=== PATIENT | female | born 1955 | race Caucasian/White ===

== ENCOUNTER 2016-12-03 13:54 | Outpatient (CLI) | payer MEDICAID ==
[2016-12-03 18:18] LABS: BASOPHILS # (AUTO) 0.1 10^3/uL (0.0-0.1); BASOPHILS % (AUTO) 1.4 %; EOSINOPHILS # (AUTO) 0.2 10^3/uL (0.0-0.7); EOSINOPHILS % (AUTO) 2.9 %; HCT - HEMATOCRIT 42.1 % (37.0-47.0); HGB - HEMOGLOBIN 14.4 g/dL (12.0-16.0); LYMPHOCYTES # (AUTO) 2.3 10^3/uL (1.5-3.5); LYMPHOCYTES % (AUTO) 28.1 %; MEAN CORPUSCULAR HEMOGLOBIN 31.4 pg (27.0-31.0); MEAN CORPUSCULAR HGB CONC 34.3 g/dL (32.0-36.0); MEAN CORPUSCULAR VOLUME 91.6 fL (81.0-99.0); MEAN PLATELET VOLUME 8.3 fL (7.9-10.8); MONOCYTES # (AUTO) 0.5 10^3/uL (0.0-1.0); MONOCYTES % (AUTO) 6.6 %; NUCLEATED RED BLOOD CELLS AUTO 0.1 /100WBC; UNCORRECTED WHITE BLOOD COUNT 8.2 x10^3/uL; WHITE BLOOD COUNT 8.2 x10^3/uL (4.8-10.8)
[2016-12-03 18:35] LABS: ALBUMIN/GLOBULIN RATIO 1.3 (1.0-2.2); BILIRUBIN,TOTAL 0.5 mg/dL (0.2-1.0); BUN - BLOOD UREA NITROGEN 15 mg/dL (6-20); CALCIUM 8.8 mg/dL (8.5-10.3); CARBON DIOXIDE - CO2 29 mmol/L (21-32); CHLORIDE 105 mmol/L (101-111); CHOL/HDL RATIO 4.4 (<4.4); CHOLESTEROL 203 mg/dL; CREATININE 0.6 mg/dL (0.4-1.0); GFR - MDRD 102 (>89); GLUCOSE 124 mg/dL (70-100); HDL CHOLESTEROL 46 mg/dL; LDL/HDL RATIO 2.5 (<4.4); POTASSIUM 3.5 mmol/L (3.5-5.0); SODIUM 140 mmol/L (135-145); TOTAL PROTEIN 6.9 g/dL (6.7-8.2); TRIGLYCERIDES 204 mg/dL; VLDL CHOLESTEROL 41 mg/dL
[2016-12-03 19:05] LABS: THYROID STIMULATING HORMONE 0.23 uIU/mL (0.34-5.60)
== END 2016-12-03 13:55 | disposition home or self-care (01) ==
LOC: LAB.F 13:54
PROVIDERS: ATTEND Internal Medicine
DX: E78.00 Pure hypercholesterolemia, unspecified (principal); E03.9 Hypothyroidism, unspecified; R53.83 Other fatigue; M25.50 Pain in unspecified joint; L53.9 Erythematous condition, unspecified
CPT/HCPCS: 36415; 80053; 80061; 83880; 84439; 84443; 85025; 85651; 86038; 86140; 86430

== ENCOUNTER 2016-12-16 14:48 | Outpatient (CLI) | payer MEDICAID ==
[2016-12-16 18:55] LABS: BILIRUBIN,URINE NEGATIVE (NEGATIVE); PH,URINE 5.5 PH (5.0-7.5)
[2016-12-16 19:01] LABS: WBC,URINE 0-3 /HPF (0-5)
[2016-12-16 19:26] LABS: HEMOGLOBIN A1C 0.56 g/dL
== END 2016-12-16 14:49 | disposition home or self-care (01) ==
LOC: LAB.F 14:48
PROVIDERS: ATTEND Internal Medicine
DX: R35.8 Other polyuria (principal)
CPT/HCPCS: 36415; 81001; 83036

== ENCOUNTER 2017-01-20 12:53 | Outpatient (CLI) | payer MEDICAID | END 2017-01-20 12:54 | disposition home or self-care (01) | LOC: LAB.F 12:53 | PROVIDERS: ATTEND Internal Medicine | DX: E03.9 Hypothyroidism, unspecified (principal) | CPT/HCPCS: 36415; 84443 ==

== ENCOUNTER 2017-01-31 13:19 | Outpatient (CLI) | payer MEDICAID ==
--- NOTE | 2017-02-03 16:40 | Mammography Report ---
DIGITAL SCREENING MAMMOGRAM: 01/31/2017 CLINICAL INDICATION: A 61-year-old nulliparous patient with personal history of right breast cancer, status post lumpectomy and radiation therapy, family history of breast cancer, for screening. COMPARISON: 01/2016, 01/2015, 08/2012, 08/2011, 07/2010. TECHNIQUE: Routine CC and MLO projections were obtained of the breasts. FINDINGS: The breasts demonstrate scattered fibroglandular densities bilaterally. Postoperative and posttreatment changes in the right upper outer posterior breast are stable. No suspicious masses, clu stered microcalcifications, or regions of architectural distortion are identified. IMPRESSION: BENIGN FINDINGS. RECOMMENDATION: ROUTINE ANNUAL SCREENING UNLESS OTHERWISE CLINICALLY INDICATED. BIRADS CATEGORY 2-BENIGN FINDINGS. STANDARD QUALIFYING STATEMENTS 1. This examination was reviewed with the aid of Computer-Aided Detection (CAD). 2. A negative or benign imaging report should not delay biopsy if clinically suspicious findings are present. Consider surgical consultation if warranted. More than 5% of cancers are not identified by i maging. 3. Dense breasts may obscure an underlying neoplasm. JOB #: [id number] EXT JOB #:[id number]
== END 2017-01-31 13:20 | disposition home or self-care (01) ==
LOC: DI.S 13:19
PROVIDERS: ATTEND Internal Medicine
DX: Z85.3 Personal history of malignant neoplasm of breast (principal); Z80.3 Family history of malignant neoplasm of breast
CPT/HCPCS: 77067

== ENCOUNTER 2017-06-06 13:27 | Outpatient (CLI) | payer MEDICAID | END 2017-06-06 13:28 | disposition home or self-care (01) | LOC: LAB.F 13:27 | PROVIDERS: ATTEND Physician Assistant Medical | DX: E03.9 Hypothyroidism, unspecified (principal) | CPT/HCPCS: 36415; 84443 ==

== ENCOUNTER 2017-08-01 10:15 | Outpatient (CLI) | payer MEDICAID ==
[2017-08-01 17:49] LABS: BASOPHILS # (AUTO) 0.1 10^3/uL (0.0-0.1); BASOPHILS % (AUTO) 1.9 %; EOSINOPHILS # (AUTO) 0.2 10^3/uL (0.0-0.7); EOSINOPHILS % (AUTO) 3.4 %; HGB - HEMOGLOBIN 13.8 g/dL (12.0-16.0); LYMPHOCYTES # (AUTO) 2.1 10^3/uL (1.5-3.5); LYMPHOCYTES % (AUTO) 35.1 %; MEAN CORPUSCULAR HEMOGLOBIN 30.8 pg (27.0-31.0); MEAN CORPUSCULAR HGB CONC 33.4 g/dL (32.0-36.0); MEAN CORPUSCULAR VOLUME 92.3 fL (81.0-99.0); MEAN PLATELET VOLUME 8.1 fL (7.9-10.8); MONOCYTES # (AUTO) 0.4 10^3/uL (0.0-1.0); MONOCYTES % (AUTO) 6.6 %; NEUTROPHILS # (AUTO) 3.2 10^3/uL (1.5-6.6); PLT - PLATELET COUNT 296 10^3/uL (130-450); RED BLOOD COUNT 4.47 10^6/uL (4.20-5.40)
[2017-08-01 18:27] LABS: CALCIUM 8.7 mg/dL (8.5-10.3); CREATININE 0.6 mg/dL (0.4-1.0)
== END 2017-08-01 10:16 | disposition home or self-care (01) ==
LOC: LAB.F 10:15
PROVIDERS: ATTEND Internal Medicine
DX: G62.9 Polyneuropathy, unspecified (principal)
CPT/HCPCS: 36415; 80048; 82607; 85025

== ENCOUNTER 2017-12-23 13:29 | Outpatient (CLI) | payer MEDICAID ==
--- NOTE | 2017-12-23 16:14 | XRAY Report ---
Reason: KNEE PAIN, LEFT Procedure Date: 12/23/2017 Accession Number: [id number] / [id number] Procedure: XR - Knee 3 View LT CPT Code: FULL RESULT: EXAM: LEFT KNEE RADIOGRAPHY EXAM DATE: 12/23/2017 02:03 PM. CLINICAL HISTORY: Left knee pain. COMPARISON: None. TECHNIQUE: 3 views. FINDINGS: Bones: Normal. No fractures or bone lesions. Joints: Normal. No effusion. No subluxations. Soft Tissues: Normal. No soft tissue swelling. IMPRESSION: No acute fracture or dislocation. RADIA
== END 2017-12-23 13:30 | disposition home or self-care (01) ==
LOC: DI 13:29
PROVIDERS: ATTEND Family Medicine
DX: M25.562 Pain in left knee (principal)

== ENCOUNTER 2018-02-02 13:26 | Outpatient (CLI) | payer MEDICAID ==
--- NOTE | 2018-02-03 08:27 | Mammography Report ---
Reason: SCREEN w VENECIA Procedure Date: 02/02/2018 Accession Number: [id number] / [id number] Procedure: ROSIE - Screening Mammo w/Venecia CPT Code: FULL RESULT: EXAM: Screening Mammo w/Venecia DATE: 02/02/2018 2:15 PM CLINICAL HISTORY: 62 year-old nulliparous female with personal history of right breast cancer status post lumpectomy and radiation. TECHNIQUE: Bilateral CC and MLO views were obtained. COMPARISON: 01/31/2017 01/31/2016 01/05/2015. FINDINGS: The breasts demonstrate scattered fibroglandular densities bilaterally. Posttreatment changes are again seen in the right breast. No suspicious masses, clustered microcalcifications, or regions of architectural distortion are identified. IMPRESSION: Benign findings RECOMMENDATION: Routine annual screening unless otherwise clinically indicated. BIRADS CATEGORY 2: Benign findings STANDARD QUALIFYING STATEMENTS: 1. This examination was not reviewed with the aid of Computer-Aided Detection (CAD). 2. A negative or benign imaging report should not delay biopsy if clinically suspicious findings are present. Consider surgical consultation if warrented. More than 5% of cancers are not identified by imaging. 3. Dense breasts may obscure an underlying neoplasm. 4. This examination was reviewed with the aid of 3D breast imaging (tomosynthesis).
== END 2018-02-02 13:27 | disposition home or self-care (01) ==
LOC: DI 13:26
DX: Z12.31 Encounter for screening mammogram for malignant neoplasm of breast (principal); Z08 Encounter for follow-up examination after completed treatment for malignant neoplasm; Z85.3 Personal history of malignant neoplasm of breast
CPT/HCPCS: 77063; 77067

== ENCOUNTER 2018-02-05 10:02 | Outpatient (CLI) | payer MEDICAID ==
[2018-02-05 18:31] LABS: ALBUMIN 3.8 g/dL (3.2-5.5); ALBUMIN/GLOBULIN RATIO 1.2 (1.0-2.2); ALKALINE PHOSPHATASE 50 IU/L (42-121); ALT ALANINE AMINOTRANSFERASE 16 IU/L (10-60); AST ASPARTATE AMINOTRANSFERASE 17 IU/L (10-42); BILIRUBIN,TOTAL 0.7 mg/dL (0.2-1.0); BUN - BLOOD UREA NITROGEN 15 mg/dL (6-20); CALCIUM 8.8 mg/dL (8.5-10.3); CARBON DIOXIDE - CO2 28 mmol/L (21-32); CHLORIDE 103 mmol/L (101-111); CHOL/HDL RATIO 4.4 (<4.4); CHOLESTEROL 236 mg/dL; CREATININE 0.7 mg/dL (0.4-1.0); GFR - MDRD 85 (>89); GLUCOSE 92 mg/dL (70-100); HDL CHOLESTEROL 54 mg/dL; LDL CHOLESTEROL,CALCULATED 166 mg/dL; LDL/HDL RATIO 3.1 (<4.4); SODIUM 139 mmol/L (135-145); TOTAL PROTEIN 7.1 g/dL (6.7-8.2); VLDL CHOLESTEROL 16 mg/dL
== END 2018-02-05 10:03 | disposition home or self-care (01) ==
LOC: LAB.F 10:02
PROVIDERS: ATTEND Internal Medicine
DX: E78.00 Pure hypercholesterolemia, unspecified (principal); E03.9 Hypothyroidism, unspecified
CPT/HCPCS: 36415; 80053; 80061; 83721; 84443

== ENCOUNTER 2018-06-01 13:45 | Outpatient (CLI) | payer MEDICAID | END 2018-06-01 13:46 | disposition home or self-care (01) | LOC: LAB.F 13:45 | PROVIDERS: ATTEND Internal Medicine | DX: E03.9 Hypothyroidism, unspecified (principal) | CPT/HCPCS: 36415; 84443 ==

== ENCOUNTER 2018-12-21 10:22 | Outpatient (CLI) | payer MEDICAID ==
[2018-12-21 17:14] LABS: HGB - HEMOGLOBIN 14.9 g/dL (12.0-16.0); MEAN CORPUSCULAR HEMOGLOBIN 31.9 pg (27.0-31.0); MEAN CORPUSCULAR HGB CONC 33.4 g/dL (32.0-36.0); MEAN CORPUSCULAR VOLUME 95.5 fL (81.0-99.0); RED BLOOD COUNT 4.67 10^6/uL (4.20-5.40); RED CELL DISTRIBUTION WIDTH 13.2 % (12.0-15.0); WHITE BLOOD COUNT 5.8 x10^3/uL (4.8-10.8)
[2018-12-21 18:04] LABS: ALBUMIN 3.7 g/dL (3.2-5.5); ALKALINE PHOSPHATASE 45 IU/L (42-121); ALT ALANINE AMINOTRANSFERASE 22 IU/L (10-60); AST ASPARTATE AMINOTRANSFERASE 19 IU/L (10-42); BILIRUBIN,TOTAL 0.6 mg/dL (0.2-1.0); BUN - BLOOD UREA NITROGEN 16 mg/dL (6-20); CARBON DIOXIDE - CO2 28 mmol/L (21-32); CHLORIDE 104 mmol/L (101-111); CHOL/HDL RATIO 4.8 (<4.4); CHOLESTEROL 249 mg/dL; CREATININE 0.7 mg/dL (0.4-1.0); GFR - MDRD 85 (>89); GLUCOSE 85 mg/dL (70-100); HDL CHOLESTEROL 52 mg/dL; LDL CHOLESTEROL,CALCULATED 177 mg/dL; LDL/HDL RATIO 3.4 (<4.4); SODIUM 140 mmol/L (135-145); TOTAL PROTEIN 7.3 g/dL (6.7-8.2); VLDL CHOLESTEROL 20 mg/dL
[2018-12-21 19:26] LABS: FREE T4 (FREE THYROXINE) 1.14 ng/dL (0.58-1.64)
== END 2018-12-21 10:23 | disposition home or self-care (01) ==
LOC: LAB.S 10:22
PROVIDERS: ATTEND Internal Medicine
DX: Z00.00 Encounter for general adult medical examination without abnormal findings (principal); E78.00 Pure hypercholesterolemia, unspecified; G62.9 Polyneuropathy, unspecified; E03.9 Hypothyroidism, unspecified
CPT/HCPCS: 36415; 80053; 80061; 82607; 83721; 84439; 84443; 85027

== ENCOUNTER 2019-01-01 13:15 | Outpatient (CLI) | payer MEDICAID ==
[2019-01-01 18:01] LABS: BILIRUBIN,URINE NEGATIVE (NEGATIVE); GLUCOSE, URINE (UA) NEGATIVE (NEGATIVE); KETONES,URINE (UA) NEGATIVE (NEGATIVE); LEUKOCYTE ESTERASE, URINE NEGATIVE (NEGATIVE); NITRITE,URINE NEGATIVE (NEGATIVE); OCCULT BLOOD,URINE NEGATIVE (NEGATIVE); PH,URINE 6.5 PH (5.0-7.5); PROTEIN,URINE NEGATIVE (NEGATIVE); UROBILINOGEN,URINE 0.2 (NORMAL) E.U./dL (NORMAL)
[2019-01-01 18:08] LABS: CLARITY,URINE CLEAR (CLEAR)
== END 2019-01-01 23:59 | disposition home or self-care (01) ==
LOC: LAB.R 13:15
PROVIDERS: ATTEND Internal Medicine
DX: R39.15 Urgency of urination (principal)
CPT/HCPCS: 81001; 81003; 87086

== ENCOUNTER 2019-02-09 14:24 | Outpatient (CLI) | payer MEDICAID ==
--- NOTE | 2019-02-10 09:30 | Mammography Report ---
Reason: SELF REFERRING MAMMO Procedure Date: 02/09/2019 Accession Number: [id number] / [id number] Procedure: MGS - Screening Mammo Dig Bilat CPT Code: Final Report FULL RESULT: EXAM: Screening Mammo Dig Bilat DATE: 02/09/2019 3:12 PM CLINICAL HISTORY: Screening encounter. History of nulliparity and personal history of breast cancer status post right breast lump ectomy in 1994. Family history of breast cancer in the mother at the age of 72. TECHNIQUE: (B) - Bilateral CC and MLO views were obtained. COMPARISON: 02/02/2018 through 2010. PARENCHYMAL PATTERN: (A) - The breast(s) demonstrate(s) scattered fibroglandular densities. FINDINGS: Posttreatment changes in the right breast are stable, typically benign. There are no suspicious masses, calcifications, or areas of distortion. IMPRESSION: Benign findings. BI-RADS category 2. RECOMMENDATION: (ANNUAL) - Recommend routine annual screening mammography. BI-RADS CATEGORY: (2) - Benign Findings. STANDARD QUALIFYING STATEMENTS: 1. This examination was reviewed with the aid of Computer-Aided Detection (CAD). 2. A negative or benign imaging report should not preclude biopsy if clinically suspicious findings are present. 3. Dense breasts may obscure an underlying neoplasm. 4. This examination was reviewed without the aid of 3D breast imaging (tomosynthesis).
== END 2019-02-09 14:25 | disposition home or self-care (01) ==
LOC: DI.S 14:24
DX: Z12.31 Encounter for screening mammogram for malignant neoplasm of breast (principal); Z80.3 Family history of malignant neoplasm of breast; Z08 Encounter for follow-up examination after completed treatment for malignant neoplasm; Z85.3 Personal history of malignant neoplasm of breast
CPT/HCPCS: 77067

== ENCOUNTER 2019-02-22 12:43 | Outpatient (CLI) | payer MEDICAID ==
--- NOTE | 2019-02-22 13:59 | CT Report ---
Reason: NICOTINE DEPENDENCE Procedure Date: 02/22/2019 Accession Number: [id number] / [id number] Procedure: CT - Low Dose Lung Cancer Screen CPT Code: Final Report FULL RESULT: EXAM CT LUNG SCREEN EXAM DATE: 02/22/2019 01:09 PM. HISTORY: 63-year-old patient with [id number] smoking history. Currently smoking: Yes. COMPARISON: None. TECHNIQUE: CT examination of the entire thorax without contrast was performed using low-dose technique. Thin section coronal, axial, sagittal and MIP axial images were obtained. In accordance with CT protocol optimization, one or more of the following dose reduction techniques were utilized for this exam: automated exposure control, adjustment of mA and/or KV based on patient size, or use of iterative reconstructive technique. FINDINGS: Nodules: Right upper lobe: None. Right middle lobe: None. Right lower lobe: None. Left upper lobe: 2 mm nodule image 28 series 4. Left lower lobe: None. Emphysema: None. Pleura: Apical pleural thickening/scarring is seen at the right lung apex greater than left lung apex. Aorta: Mildly calcified. Mediastinum: Unremarkable. Coronary calcifications: Minimal. Other pulmonary findings: None. Other extrapulmonary findings: Cholelithiasis. Calcifications in the right breast and right axillary region, likely prior breast surgery. IMPRESSION: Lung-RADS ASSESSMENT CATEGORY: 2. - benign appearance or behavior. Probability of malignancy: Less than 1%. RECOMMENDATION: Continue annual lung screening CT. RADIA
== END 2019-02-22 12:44 | disposition home or self-care (01) ==
LOC: DI 12:43
PROVIDERS: ATTEND Registered Nurse
DX: Z12.2 Encounter for screening for malignant neoplasm of respiratory organs (principal); F17.210 Nicotine dependence, cigarettes, uncomplicated

== ENCOUNTER 2019-03-11 14:32 | Outpatient (CLI) | payer MEDICAID ==
[2019-03-11 19:45] LABS: FREE T4 (FREE THYROXINE) 1.22 ng/dL (0.58-1.64)
== END 2019-03-11 14:33 | disposition home or self-care (01) ==
LOC: LAB.S 14:32
PROVIDERS: ATTEND Registered Nurse
DX: R94.6 Abnormal results of thyroid function studies (principal)
CPT/HCPCS: 36415; 84439; 84443

== ENCOUNTER 2019-09-07 13:16 | Outpatient (CLI) | payer MEDICAID ==
[~2019-09-07 13:16] MED LIST: ALBUTEROL 1 PUFF INH STA
== END 2019-09-07 13:17 | disposition home or self-care (01) ==
LOC: RT 13:16
PROVIDERS: ATTEND Registered Nurse
DX: J44.9 Chronic obstructive pulmonary disease, unspecified (principal); F17.200 Nicotine dependence, unspecified, uncomplicated
CPT/HCPCS: 94060; 94729

== ENCOUNTER 2019-10-28 19:47 | Outpatient (CLI) | payer MEDICAID | END 2019-10-28 19:48 | disposition home or self-care (01) | LOC: COV 19:47 | PROVIDERS: ATTEND Family Medicine | DX: R05 Cough (principal); R06.02 Shortness of breath; R53.83 Other fatigue; J02.9 Acute pharyngitis, unspecified; R09.81 Nasal congestion; Z20.828 Contact with and (suspected) exposure to other viral communicable diseases ==

== ENCOUNTER 2020-01-26 07:28 | Outpatient (CLI) | payer MEDICAID ==
[2020-01-26 15:51] LABS: BASOPHILS # (AUTO) 0.1 10^3/uL (0.0-0.1); BASOPHILS % (AUTO) 1.4 %; EOSINOPHILS # (AUTO) 0.3 10^3/uL (0.0-0.7); EOSINOPHILS % (AUTO) 4.5 %; HGB - HEMOGLOBIN 14.3 g/dL (12.0-16.0); LYMPHOCYTES # (AUTO) 2.3 10^3/uL (1.5-3.5); LYMPHOCYTES % (AUTO) 36.2 %; MEAN CORPUSCULAR HEMOGLOBIN 31.2 pg (27.0-31.0); MEAN CORPUSCULAR HGB CONC 33.3 g/dL (32.0-36.0); MEAN CORPUSCULAR VOLUME 93.7 fL (81.0-99.0); MONOCYTES # (AUTO) 0.5 10^3/uL (0.0-1.0); MONOCYTES % (AUTO) 7.9 %; NEUTROPHILS # (AUTO) 3.1 10^3/uL (1.5-6.6); NEUTROPHILS % (AUTO) 49.7 %; PLT - PLATELET COUNT 284 10^3/uL (130-450); RED BLOOD COUNT 4.58 10^6/uL (4.20-5.40); RED CELL DISTRIBUTION WIDTH 12.9 % (12.0-15.0); WHITE BLOOD COUNT 6.2 x10^3/uL (4.8-10.8)
[2020-01-26 16:02] LABS: ALBUMIN 3.5 g/dL (3.2-5.5); ALBUMIN/GLOBULIN RATIO 1.1 (1.0-2.2); ALKALINE PHOSPHATASE 47 IU/L (42-121); ALT ALANINE AMINOTRANSFERASE 17 IU/L (10-60); AST ASPARTATE AMINOTRANSFERASE 16 IU/L (10-42); BILIRUBIN,TOTAL 0.5 mg/dL (0.2-1.0); BUN - BLOOD UREA NITROGEN 17 mg/dL (6-20); CALCIUM 8.7 mg/dL (8.5-10.3); CARBON DIOXIDE - CO2 27 mmol/L (21-32); CHLORIDE 106 mmol/L (101-111); CHOL/HDL RATIO 4.1 (<4.4); CHOLESTEROL 205 mg/dL; CREATININE 0.7 mg/dL (0.4-1.0); GLUCOSE 90 mg/dL (70-100); HDL CHOLESTEROL 50 mg/dL; LDL CHOLESTEROL,CALCULATED 136 mg/dL; LDL/HDL RATIO 2.7 (<4.4); SODIUM 139 mmol/L (135-145); TOTAL PROTEIN 6.6 g/dL (6.7-8.2); VLDL CHOLESTEROL 19 mg/dL
== END 2020-01-26 07:29 | disposition home or self-care (01) ==
LOC: LAB.S 07:28
PROVIDERS: ATTEND Registered Nurse
DX: J44.9 Chronic obstructive pulmonary disease, unspecified (principal); E78.00 Pure hypercholesterolemia, unspecified; F17.200 Nicotine dependence, unspecified, uncomplicated; R79.89 Other specified abnormal findings of blood chemistry
CPT/HCPCS: 36415; 80053; 80061; 83721; 84443; 85025

== ENCOUNTER 2020-07-04 13:30 | Outpatient (CLI) | payer MEDICAID, OTHER ==
--- NOTE | 2020-07-04 16:35 | XRAY Report ---
PROCEDURE: Chest 2 View X-Ray INDICATIONS: COUGH TECHNIQUE: 2 view(s) of the chest. COMPARISON: Chest CT dated 02/22/2019 FINDINGS: Surgical changes and devices: None. Lungs and pleura: No pleural effusions or pneumothorax. Lungs are clear. Mediastinum: Mediastinal contours are normal. Heart size is normal. Bones and chest wall: No suspicious bony abnormalities. Calcifications within the right anterior ch est wall are present, as before. Soft tissues appear unremarkable. IMPRESSION: No acute process. Reviewed by: Mike Hameed MD on 07/04/2020 4:34 PM PDT Approved by: Mike Hameed MD on 07/04/2020 4:34 PM PDT Station ID: [id number]
== END 2020-07-04 23:59 | disposition home or self-care (01) ==
LOC: DI.S 13:30
PROVIDERS: ATTEND Physician Assistant Medical
DX: R05 Cough (principal); R06.02 Shortness of breath; Z20.822 Contact with and (suspected) exposure to COVID-19
CPT/HCPCS: 87275; 87276

== ENCOUNTER 2020-07-14 13:08 | Outpatient (CLI) | payer OTHER ==
--- NOTE | 2020-07-14 13:29 | XRAY Report ---
PROCEDURE: Chest 2 View X-Ray INDICATIONS: DYSPNEA TECHNIQUE: 2 view(s) of the chest. COMPARISON: None. FINDINGS: Surgical changes and devices: Surgical clips are seen in right axilla. Lungs and pleura: No pleural effusions or pneumothorax. Lungs are clear. Mediastinum: Mediastinal contours are normal. Heart size is normal. Bones and chest wall: No suspicious bony abnormalities. Soft tissues appear unremarkable. IMPRESSION: No acute cardiopulmonary pathology. Reviewed by: Rickie Bullock MD on 07/14/2020 1:28 PM PDT Approved by: Rickie Bullock MD on 07/14/2020 1:28 PM PDT Station ID: [id number]
== END 2020-07-14 13:09 | disposition home or self-care (01) ==
LOC: DI.S 13:08
PROVIDERS: ATTEND Physician Assistant Medical
DX: R06.00 Dyspnea, unspecified (principal)

== ENCOUNTER 2020-08-22 08:00 | Outpatient (CLI) | payer MEDICARE ==
[2020-08-22 15:43] LABS: THYROID STIMULATING HORMONE 6.03 uIU/mL (0.34-5.60)
[2020-08-22 16:25] LABS: FREE T4 (FREE THYROXINE) 1.36 ng/dL (0.58-1.64)
== END 2020-08-22 23:59 | disposition home or self-care (01) ==
LOC: LAB.S 08:00
PROVIDERS: ATTEND Physician Assistant Medical
DX: E03.9 Hypothyroidism, unspecified (principal)
CPT/HCPCS: 36415; 84439; 84443

== ENCOUNTER 2020-08-25 18:34 | Emergency (ER) | payer OTHER, MEDICARE, BC ==
[2020-08-25] MEDS ORDERED: ALBUTEROL 1 PUFF INH STA (19:37)
--- NOTE | 2020-08-25 20:05 | XRAY Report ---
PROCEDURE: Chest 2 View X-Ray INDICATIONS: shortness of breath TECHNIQUE: 2 view(s) of the chest. COMPARISON: 07/14/2020. FINDINGS: Surgical changes and devices: Right lumpectomy/axillary clips. Lungs and pleura: No pleural effusions or pneumothorax. Lungs are clear. Mediastinum: Mediastinal contours are normal. Heart size is normal. Bones and chest wall: No suspicious bony abnormalities. Soft tissues appear unremarkable. IMPRESSION: No evidence acute pulmonary process. Reviewed by: Allen Mejia MD on 08/25/2020 8:03 PM PDT Approved by: Allen Mejia MD on 08/25/2020 8:03 PM PDT Station ID: [id number]
[2020-08-25] MEDS ORDERED: ALBUTEROL NEB 2.5 MG/3 ML INH STA (20:11)
[2020-08-25] MEDS ORDERED: IPRATROPIUM/ALBUTEROL 3 ML NEB INH STA (20:11)
[2020-08-25] MEDS ORDERED: CETIRIZINE 10 MG TABLET PO STA (20:28)
[2020-08-25] MEDS ORDERED: predniSONE 20 MG TABLET PO STA (20:28)
--- NOTE | 2020-08-25 20:42 | ED Physician Documentation ---
PD HPI DYSPNEA - Stated complaint Stated Complaint: SOA - Chief complaint Chief Complaint: Resp - History obtained from History obtained from: Patient - History of Present Illness Pain level max: 0 Pain level now: 0 Associated symptoms: No: Fever - Additional information Additional information: Patient is a 65-year-old female who was diagnosed with COPD several months ago. She has a Combivent Respimat inhaler as well as an albuterol inhaler. She has been on steroids multiple times in the past 3 months. She states that she feels better on the prednisone, but then when she stops it she has a hard time breathing again. She is using the Combivent as needed. Also using the albuterol as needed without a spacer. No fevers. No chills. Dry chronic cough. She states that she has quit smoking. No chest pain.She states she feels like her chest is tight and has increased wheezing. Worse with walking, b ron with rest. Review of Systems Constitutional: denies: Fever Nose: reports: Congestion. 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 HEENT: None Derm: None - Past Surgical History Past Surgical History: Yes Ortho: Other /ELECTRONICS DESIGN ENGINEER: Hysterectomy, Mastectomy - Present Medications Home Medications: Ambulatory Orders Medication Instructions Recorded Confirmed Budesonide/Formoterol Fumarate 2 puffs IH BID #1 08/25/20 [Symbicort 80-4.5 Mcg Inhaler] Cetirizine [ZyrTEC] 10 mg PO DAILY #30 tablet 08/25/20 Doxycycline Hyclate 100 mg PO BID 08/25/20 08/25/20 Levothyroxine [Synthroid] 100 mcg PO DAILY 08/25/20 08/25/20 predniSONE [Deltasone] 10 mg PO [id number] #42 tab 08/25/20 - Allergies Allergies/Adverse Reactions: Allergies Allergy/AdvReac Type Severity Reaction Status Date / Time No Known Drug Allergies Allergy Verified 08/25/20 18:55 - Social History Does the pt smoke?: No Smoking Status: Former smoker Does the pt drink ETOH?: Yes Does the pt have substance abuse?: No - Immunizations Immunizations are current?: Yes PD ED PE NORMAL - Vitals Vital signs reviewed: Yes - General General: Alert and oriented X 3, No acute distress - HEENT HEENT: Moist mucous membranes - Neck Neck: Supple, no meningeal sign - Cardiac Cardiac: RRR, Strong equal pulses - Respiratory Respiratory: No respiratory distress, Other (Diffuse wheezing bilaterally) - Abdomen Abdomen: Soft, Non tender, Non distended - Derm Derm: Warm and dry - Extremities Extremities: No edema, No calf tenderness / cord - Neuro Neuro: Alert and oriented X 3 - Psych Psych: Normal mood, Normal affect Results - Vitals Vitals: Vital Signs - 24 hr 08/25/20 08/25/20 08/25/20 18:49 19:07 20:00 Temperature 36.2 C L 37.4 C Heart Rate 108 H 105 H 107 H Respiratory 20 20 22 Rate Blood Pressure 136/70 H 135/73 H O2 Saturation 92 94 08/25/20 08/25/20 08/25/20 20:30 21:00 21:07 Temperature 37.4 C Heart Rate 107 H 110 H 96 Respiratory 24 21 Rate Blood Pressure 148/79 H O2 Saturation 100 Oxygen O2 Source Room air - Rads (name of study) cxr Radiology: Prelim report reviewed, EMP read contemporaneously, See rad report (No evidence acute pulmonary process. ) PD MEDICAL DECISION MAKING - ED course Complexity details: reviewed results, re-evaluated patient, considered differential, d/w patient, d/w family ED course: 65-year-old female with a COPD flare. We will place on steroids for home. Given albuterol, DuoNeb treatments here. Also given prednisone and Zyrtec here. We will start her on Zyrtec for home as well as there are significant allergens in the air currently. We will also place her on a Symbicort inhaler for home for better long-term symptom control. She sees her doctor on Friday. She has not yet seen a gravel weigher and I think she would benefit from seeing 1. Informed to use her Combivent Respimat 4 times per day. Use the albuterol for breakthrough. Patient counseled regarding signs and symptoms for which I believe and urgent re-evaluation would be necessary. Patient with good understanding of and agreement to plan and is comfortable going home at this time This document was made in part using voice recognition software. While efforts are made to proofread this document, sound alike and grammatical errors may occur. Departure - Departure Disposition: Home, Self Care Clinical Impression: Moderate COPD (chronic obstructive pulmonary disease) Condition: Good Instructions: ED COPD Flare Follow-Up: Machelle Zarco ARNP [Primary Care Provider] - Within 1 week Prescriptions: predniSONE [Deltasone] 10 mg PO [id number] #42 tab Budesonide/Formoterol Fumarate [Symbicort 80-4.5 Mcg Inhaler] 2 puffs IH BID #1 Cetirizine [ZyrTEC] 10 mg PO DAILY #30 tablet Comments: Please ensure you are using the Combivent every 6 hours at home. We are going to add Symbicort twice a day. We are going to place you on a steroid taper over the next 10 days. We will also place you on an allergy medication. You can use the albuterol with a spacer for any breakthrough difficulty breathing. Follow-up with your doctor on Friday as scheduled. Return if you worsen. Discharge Date/Time: 08/25/20 21:19
[2020-08-25 21:06] VITALS: BP 148/79
== END 2020-08-25 21:19 | disposition home or self-care (01) ==
LOC: ED 18:34
DX: J44.1 Chronic obstructive pulmonary disease with (acute) exacerbation (principal); Z87.891 Personal history of nicotine dependence
CPT/HCPCS: 71046; 94640; 94664; 99283; 99284; A9270; J7512

== ENCOUNTER 2020-09-12 13:20 | Outpatient (CLI) | payer MEDICARE, BC | END 2020-09-12 13:21 | disposition home or self-care (01) | LOC: RT 13:20 | PROVIDERS: ATTEND Registered Nurse | DX: Z53.9 Procedure and treatment not carried out, unspecified reason (principal) ==

== ENCOUNTER 2020-10-10 13:17 | Outpatient (CLI) | payer MEDICARE, BC ==
[2020-10-10] MEDS ORDERED: ALBUTEROL 1 PUFF INH STA (17:23)
== END 2020-10-10 13:18 | disposition home or self-care (01) ==
LOC: RT 13:17
PROVIDERS: ATTEND Registered Nurse
DX: J44.1 Chronic obstructive pulmonary disease with (acute) exacerbation (principal); R05 Cough; R06.02 Shortness of breath
CPT/HCPCS: 93005; 94060; 94664

== ENCOUNTER 2020-11-03 08:00 | Outpatient (CLI) | payer MEDICARE, BC ==
--- NOTE | 2020-11-03 17:14 | XRAY Report ---
PROCEDURE: Shoulder 3 View RT INDICATIONS: RIGHT SHOULDER PAIN AFTER FALL TECHNIQUE: 2 views of the shoulder were acquired. COMPARISON: None. FINDINGS: Bones: There is a comminuted fracture of the proximal humeral head and neck with impaction and anteri or displacement of the humeral shaft fragment. The humeral head remains aligned with the glenoid. No suspicious bony lesions. Visualized ribs appear intact. Soft tissues: No suspicious soft tissue calcifications. Surgical clips are seen in the right chest. IMPRESSION: Comminuted, mildly displaced and impacted fracture of the proximal humeral head and neck . Reviewed by: Sonido Cuadra MD on 11/03/2020 5:13 PM PDT Approved by: Sonido Cuadra MD on 11/03/2020 5:13 PM PDT Station ID: [id number]
== END 2020-11-03 23:59 | disposition home or self-care (01) ==
LOC: DI.S 08:00
PROVIDERS: ATTEND Physician Assistant Medical
DX: S42.291A Other displaced fracture of upper end of right humerus, initial encounter for closed fracture (principal)

== ENCOUNTER 2020-11-03 17:48 | Emergency (ER) | payer MEDICARE, BC ==
[2020-11-03] MEDS ORDERED: HYDROcod/ACETAM 5/325 MG TABLET PO STA (19:45)
[2020-11-03] MEDS ORDERED: KETOROLAC 15 MG/ML VIAL IM STA (20:36)
[2020-11-03] MEDS ORDERED: HYDROmorphone 1 MG/ML CARPUJECT IM STA (20:36)
[2020-11-03] MEDS ORDERED: oxyCODONE/ACET 5/325 Prepack 4 PO STA (20:39)
--- NOTE | 2020-11-03 20:39 | ED Physician Documentation ---
PD HPI UPPER EXT INJURY - Stated complaint Stated Complaint: RT SHOULDER PX/FELL DOWN DITCH - Chief complaint Chief Complaint: Trauma Ext - History obtained from History obtained from: Patient - Additonal information Additional information: 65-year-old woman is up-to-date on tetanus had a fall down a slope today injuring mostly her right shoulder. She has severe pain in the right shoulder. Some scrapes but otherwise no other severe injuries. She was seen in clinic and had an x-ray done and referred here for further evaluation and treatment. 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 HEENT: None Derm: None - Past Surgical History Past Surgical History: Yes Ortho: Other /MANAGER RAIL: Hysterectomy, Mastectomy - Present Medications Home Medications: Ambulatory Orders Medication Instructions Recorded Confirmed Cetirizine [ZyrTEC] 10 mg PO DAILY #30 tablet 08/25/20 11/03/20 Levothyroxine [Synthroid] 100 mcg PO DAILY 08/25/20 11/03/20 Albuterol 1 inh INH PRN PRN 11/03/20 11/03/20 Fluticasone/Vilanterol [Breo 1 inh INH DAILY 11/03/20 11/03/20 Ellipta 200-25 Mcg INH] Oxycodone HCl/Acetaminophen 1 - 2 each PO Q6H PRN #30 tablet 11/03/20 [Percocet 5-325 mg Tablet] - Allergies Allergies/Adverse Reactions: Allergies Allergy/AdvReac Type Severity Reaction Status Date / Time No Known Drug Allergies Allergy Verified 11/03/20 18:21 - Social History Does the pt smoke?: No Smoking Status: Former smoker Does the pt drink ETOH?: Yes Does the pt have substance abuse?: No - Immunizations Immunizations are current?: Yes PD ED PE NORMAL - Vitals Vital signs reviewed: Yes - General General: Alert and oriented X 3, No acute distress - HEENT HEENT: PERRL, EOMI - Neck Neck: Supple, no meningeal sign, No bony TTP - Extremities Extremities: Other (Quite tender to the upper humerus and cannot range it at all. The remainder of her extremities are nontender. She does have a little scrape on the right hand and the lateral right knee which are nontender with full range of motion.) - Neuro Neuro: Alert and oriented X 3, Normal speech Results - Vitals Vitals: Vital Signs - 24 hr 11/03/20 11/03/20 18:15 20:22 Temperature 36.9 C Heart Rate 109 H 96 Respiratory 18 18 Rate Blood Pressure 131/67 H 148/72 H O2 Saturation 99 99 Oxygen O2 Source Room air PD MEDICAL DECISION MAKING - ED course ED course: X-ray of the right shoulder from earlier in the day was reviewed. She has a comminuted fracture of the right humerus, mildly displaced and impacted fracture of the humeral head and neck. She is placed in a sling and discussed the conservative nature of these fractures. Pain management was given as well. At her request I also spoke with her sister about the case. Departure - Departure Disposition: Home, Self Care Clinical Impression: Humeral fracture Qualifiers: Encounter type: initial encounter Humerus Location: surgical neck Fracture type: closed Fracture alignment: displaced Condition: Good Record reviewed to determine appropriate education?: Yes Instructions: ED Fx Shoulder Follow-Up: Josh Jane MD [Provider Admit Priv/Credential] - Prescriptions: Oxycodone HCl/Acetaminophen [Percocet 5-325 mg Tablet] 1 - 2 each PO Q6H PRN #30 tablet PRN Reason: pain Comments: Keep the sling on for the most part, but you can remove it briefly for changing and showering that sort of thing. Return for new or worsening symptoms. You do need to follow-up with the orthopedist to make sure you are healing well, but as discussed humeral fractures require only rarely any specific treatment other than time and pain medication and may be some physical therapy. The orthopedic surgeons number is on this form, call Friday for an appointment. I am prescribing a short course of narcotic pain medication for you. These are potentially dangerous and addictive medications that should be used carefully. These medications may constipate you. Take an fhqy-thu-bxenycf stool softener (docusate) twice daily with plenty of water while taking these medications. If you go 24 hours without a bowel movement, take [id number]-sbr-[id number] miralax, per package instructions. Do not drink or drive while taking these medications. If you received narcotic or sedating medications while in the emergency department, do not drive for 24 hours. Store this medication in a safe, secure place and out of reach of children. It is a violation of federal law to give or sell this medication to another person or to use in a manner other than prescribed. The ED will not refill narcotic prescriptions, including prescriptions lost or stolen. To dispose of unwanted medications: 1. [facility] at [address] in [place] has a medication drop box. They accept prescription medications (in pill form) Friday through Friday 9:00 a.m. to 5:00 p.m. 2. The [facility] [employer] [facility] accepts prescription medications (in pill form only) for disposal year round. Call for more information. 3. Contact the [facility] for the next [facility] sponsored prescription drug collection event. , [phone], or [phone]; Note that many narcotic pain relievers also contain Tylenol/acetaminophen. Please ensure that your total dose of acetaminophen from all sources does not exceed 3 g (3000 mg) per day.
[2020-11-03 21:11] VITALS: BP 134/81
== END 2020-11-03 21:12 | disposition home or self-care (01) ==
LOC: ED 17:48
DX: S42.211A Unspecified displaced fracture of surgical neck of right humerus, initial encounter for closed fracture (principal); S60.511A Abrasion of right hand, initial encounter; S80.211A Abrasion, right knee, initial encounter; W17.81XA Fall down embankment (hill), initial encounter; Y92.89 Other specified places as the place of occurrence of the external cause; Z87.891 Personal history of nicotine dependence; S42.291A Other displaced fracture of upper end of right humerus, initial encounter for closed fracture
CPT/HCPCS: 73030; 96372; 99283; 99284; A9270; J1170

== ENCOUNTER 2020-11-28 18:48 | Outpatient (CLI) | payer MEDICARE, BC ==
--- NOTE | 2020-11-28 16:57 | XRAY Report ---
PROCEDURE: Shoulder 3 View RT INDICATIONS: 4-PART FX OF SURGICAL NECK OF R HUMERUS TECHNIQUE: 4 views of the shoulder were acquired. COMPARISON: Plain films dated 11/03/2020 FINDINGS: Bones: No change in moderately displaced comminuted fracture of the humeral head and neck. No suspic ious bony lesions. Visualized ribs appear intact. Soft tissues: No suspicious soft tissue calcifications. IMPRESSION: No change in humeral head and neck fracture. Reviewed by: Mike Hameed MD on 11/28/2020 4:56 PM PDT Approved by: Mike Hameed MD on 11/28/2020 4:56 PM PDT Station ID: [id number]
== END 2020-11-28 23:59 | disposition home or self-care (01) ==
LOC: DI.N 18:48
PROVIDERS: ATTEND Orthopaedic Surgery
DX: S42.241D 4-part fracture of surgical neck of right humerus, subsequent encounter for fracture with routine healing (principal)

== ENCOUNTER 2021-01-29 10:44 | Outpatient (CLI) | payer MEDICARE, BC ==
--- NOTE | 2021-02-07 17:17 | XRAY Report ---
PROCEDURE: Shoulder 3 View RT INDICATIONS: FRACTURE OF SURGICAL NECK OF RIGHT HUMERUS TECHNIQUE: 3 views of the shoulder were acquired. COMPARISON: X-ray shoulder 11/28/2020 FINDINGS: Bones: There is an unchanged appearance of displaced comminuted fracture of the humeral head and neck . Fracture lucencies remain visible. No suspicious bony lesions. Visualized ribs appear intact. Soft tissues: No suspicious soft tissue calcifications. IMPRESSION: Comminuted displaced humeral head and neck fracture, unchanged compared to prior exam. S ignificant nonunion persists. Reviewed by: Jeanie Valdez MD on 02/07/2021 5:16 PM PDT Approved by: Jeanie Valdez MD on 02/07/2021 5:16 PM PDT Station ID: [id number]
== END 2021-01-29 10:45 | disposition home or self-care (01) ==
LOC: DI.N 10:44
PROVIDERS: ATTEND Orthopaedic Surgery
DX: S42.241A 4-part fracture of surgical neck of right humerus, initial encounter for closed fracture (principal)

== ENCOUNTER 2021-02-02 13:11 | Outpatient (CLI) | payer MEDICARE, BC ==
[2021-02-02 20:17] LABS: THYROID STIMULATING HORMONE 0.13 uIU/mL (0.34-5.60)
[2021-02-02 21:13] LABS: FREE T4 (FREE THYROXINE) 1.4 ng/dL (0.58-1.64)
== END 2021-02-02 13:12 | disposition home or self-care (01) ==
LOC: LAB.S 13:11
PROVIDERS: ATTEND Registered Nurse
DX: E03.9 Hypothyroidism, unspecified (principal)
CPT/HCPCS: 36415; 84439; 84443

== ENCOUNTER 2021-03-27 08:00 | Outpatient (CLI) | payer MEDICARE, BC ==
--- NOTE | 2021-03-27 15:31 | XRAY Report ---
PROCEDURE: Shoulder 3 View RT INDICATIONS: 4-PART FX OF SURGICAL NECK OF R HUMERUS TECHNIQUE: 3 views of the shoulder were acquired. COMPARISON: 01/29/2021 shoulder radiographs FINDINGS: There has been some interval healing of the head and neck right humeral fracture. Alignment is not si gnificant change. There remains subtle lucency in the fracture plane particularly at the lateral samanta ral head and neck junction. IMPRESSION: Continued interval healing of displaced/angulated humeral head and neck fracture, with s ome new mature bridging bony callus formation but persistent lucency. Reviewed by: Zeferino Mahmood MD on 03/27/2021 3:30 PM PST Approved by: Zeferino Mahmood MD on 03/27/2021 3:30 PM PST Station ID: [id number]
== END 2021-03-27 23:59 ==
LOC: DI.N 08:00
PROVIDERS: ATTEND Orthopaedic Surgery
DX: S42.241D 4-part fracture of surgical neck of right humerus, subsequent encounter for fracture with routine healing (principal)

== ENCOUNTER 2023-08-12 08:37 | Outpatient (CLI) | payer MEDICARE | END 2023-08-12 08:38 | disposition home or self-care (01) | LOC: LAB.S 08:37 | PROVIDERS: ATTEND Student in an Organized Health Care Education/Training Program | DX: E03.9 Hypothyroidism, unspecified (principal) | CPT/HCPCS: 36415; 84443 ==

== ENCOUNTER 2023-09-08 15:27 | Outpatient (CLI) | payer MEDICARE ==
--- NOTE | 2023-09-08 17:15 | XRAY Report ---
PROCEDURE: Tib/Fib LT INDICATIONS: PAIN IN LEFT LOWER LEG TECHNIQUE: 2 views of the tibia and fibula were acquired. COMPARISON: None. FINDINGS: Bones: No fractures or dislocations. No suspicious bony lesions. Soft tissues: No suspicious soft tissue calcifications or masses. IMPRESSION: No acute bony abnormality. If pain persists with conservative management, consider repeat radiographs in 10-14 days or cross-sectional imaging. Reviewed by: Kathie Vaughn MD on 09/08/2023 5:14 PM PDT Approved by: Kathie Vaughn MD on 09/08/2023 5:14 PM PDT Station ID: [id number]
== END 2023-09-08 18:00 | disposition home or self-care (01) ==
LOC: DI.S 15:27
PROVIDERS: ATTEND Registered Nurse
DX: S80.12XA Contusion of left lower leg, initial encounter (principal); L03.116 Cellulitis of left lower limb; M79.662 Pain in left lower leg

== ENCOUNTER 2023-09-08 15:29 | Outpatient (CLI) | payer MEDICARE | END 2023-09-08 15:30 | disposition home or self-care (01) | LOC: DI.S 15:29 | PROVIDERS: ATTEND Registered Nurse | DX: Z53.9 Procedure and treatment not carried out, unspecified reason (principal) ==

== ENCOUNTER 2023-09-10 07:00 | Outpatient (CLI) | payer MEDICARE ==
--- NOTE | 2023-09-11 11:41 | XRAY Report ---
PROCEDURE: Tib/Fib LT INDICATIONS: PAIN IN LEFT LOWER LEG TECHNIQUE: 2 views of the tibia and fibula were acquired. COMPARISON: None. FINDINGS: Bones: No fractures or dislocations. No suspicious bony lesions. Soft tissues: Skin wound over the medial aspect of distal tibial shaft is seen. No subcutaneous emphy sema. No suspicious soft tissue calcifications or masses. IMPRESSION: Skin wound over medial aspect of distal lower leg. No acute left lower leg fracture or dislocation. N o abnormal soft tissue calcifications. Reviewed by: Rickie Bullock MD on 09/11/2023 11:39 AM PDT Approved by: Rickie Bullock MD on 09/11/2023 11:39 AM PDT Station ID: [id number]
== END 2023-09-10 23:59 | disposition home or self-care (01) ==
LOC: DI.S 07:00
PROVIDERS: ATTEND Registered Nurse
DX: L03.116 Cellulitis of left lower limb (principal); S80.12XA Contusion of left lower leg, initial encounter

== ENCOUNTER 2023-09-27 08:00 | Outpatient (CLI) | payer MEDICARE | END 2023-09-27 23:59 | disposition home or self-care (01) | LOC: LAB.S 08:00 | PROVIDERS: ATTEND Physician Assistant Medical | DX: L03.116 Cellulitis of left lower limb (principal) | CPT/HCPCS: 87070; 87205 ==

== ENCOUNTER 2023-10-20 13:30 | Outpatient (CLI) | payer MEDICARE ==
[2023-10-20 20:06] LABS: BASOPHILS # (AUTO) 0.1 10^3/uL (0.0-0.1); EOSINOPHILS # (AUTO) 0.1 10^3/uL (0.0-0.7); EOSINOPHILS % (AUTO) 1.2 %; HCT - HEMATOCRIT 39.4 % (37.0-47.0); HGB - HEMOGLOBIN 12.7 g/dL (12.0-16.0); LYMPHOCYTES # (AUTO) 1.3 10^3/uL (1.5-3.5); LYMPHOCYTES % (AUTO) 21.8 %; MEAN CORPUSCULAR HEMOGLOBIN 30.5 pg (27.0-31.0); MEAN CORPUSCULAR HGB CONC 32.2 g/dL (32.0-36.0); MEAN CORPUSCULAR VOLUME 94.5 fL (81.0-99.0); MEAN PLATELET VOLUME 9.3 fL (7.9-10.8); MONOCYTES # (AUTO) 0.4 10^3/uL (0.0-1.0); MONOCYTES % (AUTO) 6.7 %; NEUTROPHILS # (AUTO) 4.1 10^3/uL (1.5-6.6); NEUTROPHILS % (AUTO) 68.6 %; PLT - PLATELET COUNT 396 10^3/uL (130-450); RED BLOOD COUNT 4.17 10^6/uL (4.20-5.40); RED CELL DISTRIBUTION WIDTH 13.3 % (12.0-15.0)
[2023-10-20 20:27] LABS: % IRON SATURATION 25 % (20-50); ALBUMIN 4.1 g/dL (3.2-5.5); ALBUMIN/GLOBULIN RATIO 1.4 (1.0-2.2); ALKALINE PHOSPHATASE 52 IU/L (42-121); ALT ALANINE AMINOTRANSFERASE 17 IU/L (10-60); AST ASPARTATE AMINOTRANSFERASE 17 IU/L (10-42); BILIRUBIN,TOTAL 0.3 mg/dL (0.2-1.0); BUN - BLOOD UREA NITROGEN 13 mg/dL (6-20); CALCIUM 9.2 mg/dL (8.5-10.3); CARBON DIOXIDE - CO2 25 mmol/L (21-32); CHLORIDE 95 mmol/L (101-111); CREATININE 0.8 mg/dL (0.6-1.3); CRP - C-REACTIVE PROTEIN < 0.5 mg/dL (<0.5); GFR - MDRD 71 (>89); GLUCOSE 127 mg/dL (74-104); IRON 80 ug/dL (50-212); POTASSIUM 3.9 mmol/L (3.5-4.5); SODIUM 128 mmol/L (135-145); TOTAL IRON BINDING CAPACITY 326 ug/dL (250-450); TRANSFERRIN 233 mg/dL (203-362)
[2023-10-20 20:38] LABS: THYROID STIMULATING HORMONE 4.23 uIU/mL (0.34-5.60)
[2023-10-20 22:49] LABS: ESTIMATED AVERAGE GLUCOSE 100 mg/dL (70-100); HEMOGLOBIN A1c% 5.1 % (4.27-6.07)
== END 2023-10-20 13:31 | disposition home or self-care (01) ==
LOC: LAB.S 13:30
PROVIDERS: ATTEND Registered Nurse
DX: Z51.89 Encounter for other specified aftercare (principal); L97.929 Non-pressure chronic ulcer of unspecified part of left lower leg with unspecified severity
CPT/HCPCS: 36415; 80053; 82306; 82652; 83036; 83540; 84443; 84466; 84630; 85025; 85651; 86140